=== PATIENT | male | born 1935 | race Caucasian/White ===

== ENCOUNTER 2017-07-20 22:13 | Inpatient (IN) | payer MEDICARE, MEDICAID ==
[2017-07-20 22:55] LABS: HEMATOCRIT 38.8 % (39.0-49.0); HEMOGLOBIN 12.6 gm/dL (12.6-17.4); MEAN CELL VOLUME 85.5 fl (80-99); MEAN CORPUSCULAR HEMOGLOBIN 27.7 pg (27.0-31.0); MEAN CORPUSCULAR HGB CONC 32.3 pg (28.0-36.0); MEAN PLATELET VOLUME 6.6 fl; NEUTROPHILE ABSOLUTE 1.3 Th/cmm (1.8-8.0); PLATELET COUNT 197 Th/cmm (150-400); RED BLOOD COUNT 4.54 Mil/cmm (3.80-5.80); RED CELL DISTRIBUTION WIDTH 13.7 % (11.5-20.0); WHITE BLOOD COUNT 5.6 Th/cmm (4.8-10.8)
[2017-07-20 23:13] LABS: INR 0.93 (0.5-1.4); PROTHROMBIN TIME (TEST) 9.7 SECONDS (9.5-11.5)
[2017-07-20 23:19] LABS: ALB/GLOB RATIO 1.1 (1.0-1.8); ALKALINE PHOSPHATASE 90 U/L (34-104); ANION GAP 7.1 (7.0-16.0); BILIRUBIN,TOTAL 0.4 mg/dL (0.3-1.0); BUN - UREA NITROGEN 26 mg/dL (7-25); BUN/CREATININE RATIO 28.9; CALCIUM SERUM 9.8 mg/dL (8.6-10.3); CARBON DIOXIDE 30.8 mEq/L (21.0-31.0); CHLORIDE 102 mEq/L (98-107); CREATININE - SERUM 0.9 mg/dL (0.7-1.3); GLUCOSE 100 mg/dL (70-105); POTASSIUM SERUM 3.9 mEq/L (3.5-5.1); SGOT 21 U/L (13-39); SGPT/ALT 15 U/L (7-52); SODIUM SERUM 136 mEq/L (136-145)
--- NOTE | 2017-07-21 | ED Physician Chart ---
Chief Complaint/HPI - Patient Information Date Seen:: 07/20/17 Time Seen:: 22:20 Chief Complaint:: WEAKNESS History of Present Illness:: THIS IS AN 81 YO BIB HIS DAUGHTER FROM HOME WITH FOUR DAYS OF INCREASE WEAKNESS AND DECREASE FEEDING. HE HAS HAD SEVERAL STROKES IN THE PAST AND HAS A HISTORY OF A RENAL STENT PLACEMENT OF THE RIGHT SIDE. HE DENIES CHEST PAIN AND ABDOMINAL PAIN. Allergies:: Allergies Allergy/AdvReac Type Severity Reaction Status Date / Time No Known Allergies Allergy Verified 07/20/17 22:23 Vitals:: Vital Signs - 8 hr 07/20/17 22:19 Temp 97.9 F HR 54 RR 18 BP 120/66 O2 Sat % 100 Historian:: Patient, Family Member Review:: Nurse's Note Reviewed Review of Systems - Review of Systems General/Constitutional: No fever, No chills, Weight loss, Weakness, No diaphoresis, No edema, No loss of appetite Skin: No skin lesions, No rash, No bruising Head: No headache, No light-headedness Eyes: No loss of vision, No pain, No diplopia ENT: No earache, No nasal drainage, No sore throat, No tinnitus Neck: No neck pain, No swelling, No thyromegaly, No stiffness, No mass noted Cardio Vascular: No chest pain, No palpitations, No PND, No orthopnea, No edema Pulmonary: No SOB, No cough, No sputum, No wheezing GI: No nausea, No vomiting, No diarrhea, No pain, No melena, No hematochezia, No constipation, No hematemesis G/U: No dysuria, No frequency, No hematuria Musculoskeletal: No bone or joint pain, No back pain, No muscle pain Endocrine: No polyuria, No polydipsia Psychiatric: No prior psych history, No depression, No anxiety, No suicidal ideation Hematopoietic: No bruising, No lymphadenopathy Allergic/Immuno: No urticaria, No angioedema Neurological: No syncope, No focal symptoms, Weakness, No paresthesia, No headache, No seizure, No dizziness, No confusion, No vertigo Past Medical History - Past Medical History Obtainable: Yes Past Medical History: HTN, CVA/TIA, Dyslipidemia Family History: None Social History: Non Smoker, No Alcohol, No Drug Use, Other (FAMILY) Surgical History: other (RENAL STENT PLACED) Psychiatricy History: None Medication: Reviewed Family Medical History - Family Member Mother History Unknown: Yes Physical Exam - Physical Examination General/Constitutional: Awake, Well-developed, well-nourished, Alert, No distress, GCS 15, Non-toxic appearing, Ambulatory Head: Atraumatic Eyes: Lids, conjuctiva normal, PERRL, EOMI Skin: Nl inspection, No rash, No skin lesions, No ecchymosis, Well hydrated, No lymphadenopathy ENMT: External ears, nose nl, Nasal exam nl, Lips, teeth, gums nl Neck: Nontender, Full ROM w/o pain, No JVD, No nuchal rigidity, No bruit, No mass, No stridor Respiratory: Nl effort/Exclusion, Clear to Auscultation, No Wheeze/Rhonchi/Rales Cardio Vascular: No murmur, gallop, rubs Other Cardio Vascular comments:: THE PATIENT IS BRADYCARDIC WITH A RATE OF 47 TO 54 GI: No tenderness/rebounding/guarding, No organomegaly, No hernia, Normal BS's, Nondistended, No mass/bruits, No McBurney tenderness : No CVA tenderness Extremities: No tenderness or effusion, Full ROM, normal strength in all extremities, No edema, Normal digits & nails Neuro/Psych: Alert/oriented, DTR's symmetric, Normal sensory exam, Normal motor strength, Judgement/insight normal, Mood normal, Normal gait, No focal deficits Misc: normal gait, Normal back, No paraspinal tenderness Labs/Radiology/EKG Results - Lab Results Results: Laboratory Tests 07/20/17 07/20/17 07/20/17 22:50 22:50 22:50 WBC 5.6 RBC 4.54 Hgb 12.6 Hct 38.8 L MCV 85.5 MCH 27.7 MCHC Differential 32.3 RDW 13.7 Plt Count 197 MPV 6.6 PT 9.7 INR 0.93 PTT (Actin FS) 23.9 L Sodium 136 Potassium 3.9 Chloride 102 Carbon Dioxide 30.8 Anion Gap 7.1 BUN 26 H Creatinine 0.9 Est GFR ( Amer) TNP Est GFR (Non-Af Amer) TNP BUN/Creatinine Ratio 28.9 Glucose 100 Calcium 9.8 Total Bilirubin 0.4 AST 21 ALT 15 Alkaline Phosphatase 90 Troponin I Total Protein 7.4 Albumin 3.8 L Globulin 3.6 Albumin/Globulin Ratio 1.1 07/20/17 22:50 WBC RBC Hgb Hct MCV MCH MCHC Differential RDW Plt Count MPV PT INR PTT (Actin FS) Sodium Potassium Chloride Carbon Dioxide Anion Gap BUN Creatinine Est GFR ( Amer) Est GFR (Non-Af Amer) BUN/Creatinine Ratio Glucose Calcium Total Bilirubin AST ALT Alkaline Phosphatase Troponin I 0.11 H* Total Protein Albumin Globulin Albumin/Globulin Ratio - Radiology Results Results: CHEST X-RAY = NAD - EKG Interpretations EKG Time:: 23:43 Rate & Rhythm: RATE=47, SINUS BRADYCARDIA Mobile: LEFT Assessment - Assessment General Assessment: SYMPTOMATIC BRADYCARDIA ELEVATED TROPONIN STATUS POST CVA ED Septic Shock - . Is Septic Shock (SBP<90, OR Lactate>4 mmol\L) present?: No - <6hrs of presentation: Vital Signs: Vital Signs - 8 hr 07/20/17 22:19 Temp 97.9 F HR 54 RR 18 BP 120/66 O2 Sat % 100 Reassessment (Disposition) - Reassessment Reassessment Condition:: Unchanged - Diagnosis Diagnosis:: SYMPTOMATIC BRADYCARDIA ELEVATED TROPONIN STATUS POST CVA - Patient Disposition Discharge/Transfer:: Acute Care w/in this hosp Admitting Medical Physician:: Marcelo Aguilar Condition at Disposition:: Unchanged ED Discharge Plan - Patient Disposition Admit/Discharge/Transfer: Acute Care w/in this hosp Condition at Disposition: Unchanged
[2017-07-21] MEDS ORDERED: Sodium Chloride 0.9% 1,000 ML IV ONE (00:03)
[2017-07-21 01:34] LABS: CHOLESTEROL 137 mg/dL (<200); TRIGLYCERIDES 147 mg/dL (<150)
[2017-07-21 05:39] VITALS: BP 160/74
--- NOTE | 2017-07-21 08:44 | Diagnostic Imaging Report ---
CHEST X-RAY: AP view INDICATION: Fever COMPARISON: None FINDINGS: There is no focal consolidation or pleural effusions The heart is normal in size. Degenerative changes of the spine are noted. Gas-filled loops of bowel are seen. Additional tubing material possibly stent is seen along the right upper abdomen. 4 mm chronic density possible bone island is seen within the right proximal humerus. IMPRESSION: No focal consolidation identified. Tubing material possibly biliary stent of the right upper quadrant. Please correlate with clinical history.
[2017-07-21] MEDS ORDERED: Pneumococcal Vaccine 0.5 mL Vial IM ONE (09:00)
[2017-07-21] MEDS: Aspirin 81mg Chewable Tab PO SCH (09:30)
[2017-07-21] MEDS: Atorvastatin Calcium 10 MG TAB PO SCH (09:31)
[2017-07-21] MEDS ORDERED: VTE Chemical Prophylaxis Screen/Admission MC PRN (11:45)
--- NOTE | 2017-07-21 17:57 | History & Physical ---
ADMIT DATE: 07/21/2017 CHIEF COMPLAINT: Generalized weakness and recurrent fall. HISTORY OF PRESENT ILLNESS: This is an 81-year-old male with prior history of CVA, hypertension, hyperlipidemia who lives at home with family, was brought into the Emergency Room for evaluation of the recurrent fall and weakness associated with decreased appetite. The patient was evaluated in the Emergency Room, noticed elevated troponin and bradycardia, so the patient was admitted for further treatments. The patient is [place] speaking. Denies any chest pain, shortness of breath, dizziness, palpitations, any nausea, vomiting, headache. No trouble vision or trouble speech, any fevers or chills. PAST MEDICAL HISTORY: Hypertension, hyperlipidemia, old CVA. PAST SURGICAL HISTORY: None reported. SOCIAL HISTORY: Lives at home. No prior history of alcohol, tobacco or street drug use. CURRENT MEDICATIONS: The patient is currently on aspirin, atorvastatin, Proscar, Lopid, and Zestril. REVIEW OF SYSTEMS: As per HPI. A 12-point system reviewed, appeared negative. PHYSICAL EXAMINATION: VITAL SIGNS: Temperature 97.7, pulse 74, respiration 18, blood pressure . GENERAL APPEARANCE: The patient does not seem to be in acute distress, lying comfortably. HEENT: Unremarkable. HEART: S1, S2 normal. LUNGS: Clear to auscultation. ABDOMEN: Soft. Nontender, no guarding. NEUROLOGIC: Alert, awake, follows commands. Moves all extremities. No focal deficits. EXTREMITIES: No edema noted. No calf tenderness. AVAILABLE LABORATORY DATA: WBC 5.6, hemoglobin 12.6, hematocrit 38.8, platelet count is 197, BUN 26, creatinine 0.9, . Chest x-ray, no acute cardiopulmonary disease noted. ASSESSMENT: 1. Generalized weakness. 2. Elevated troponin, rule out acute coronary syndrome. 3. Symptomatic bradycardia. 4. Hypertension. 5. Hyperlipidemia. 6. BPH. 7. Prior history of CVA. 8. Recurrent fall. PLAN: The patient admitted on tele unit. Serial troponins were obtained. Cardiology was consulted, echocardiogram ordered. The patient will continue aspirin, statin, and lisinopril. Monitor heart rate and rhythm. Follow up on the cardiology recommendations. PT and OT will be given. The patient's condition and progress discussed with nursing staff. JOB# [id number]
[2017-07-22] MEDS: Aspirin 81mg Chewable Tab PO SCH (09:05)
[2017-07-22] MEDS: Atorvastatin Calcium 10 MG TAB PO SCH (09:41)
--- NOTE | 2017-07-22 15:08 | Cardiology ---
07/21/[address] Marcelo Aguilar. M-MODE ECHOCARDIOGRAM: Mitral valve, anterior leaflet of mitral valve shows normal excursion, EF velocity. Posterior leaflet of the mitral valve shows normal excursion. Left ventricular posterior wall shows increased thickness, normal excursion. Interventricular septum shows increased thickness, normal excursion, hypertrophy of the left ventricle, ejection fraction 50%. Left atrium normal. Aortic root shows normal dimension, normal excursion of aortic leaflets. CONCLUSION: Hypertrophy of the left ventricle, ejection fraction 50%. 2D ECHO: Long axis view showed normal sized left ventricle with hypertrophy of the left ventricle. Left atrium normal. Aortic root shows normal dimension, normal excursion of aortic leaflets. Short axis view of mitral valve normal. Short axis view of aortic valve normal. Apical four chamber view showed normal sized left ventricle with hypertrophy of the left ventricle. Left atrium normal. Right ventricular cavity, right atrium normal, no pericardial effusion. CONCLUSION: Hypertrophy of the left ventricle, ejection fraction 50%. Doppler study shows prominent A wave consistent with poor compliance of left ventricle. Mild mitral regurgitation, tricuspid regurgitation, aortic regurgitation. JOB# [id number]
--- NOTE | 2017-07-22 18:05 | General Progress Note ---
Subjective - Review of Systems Service Date: 07/22/17 Subjective: Patient seen and examined doing better denied chest pain or sob or any other complaints Objective - Results Result Diagrams: 07/20/17 22:50 07/20/17 22:50 Recent Labs: Laboratory Last Values WBC 5.6 Th/cmm (4.8-10.8) 07/20/17 22:50 RBC 4.54 Mil/cmm (3.80-5.80) 07/20/17 22:50 Hgb 12.6 gm/dL (12.6-17.4) 07/20/17 22:50 Hct 38.8 % (39.0-49.0) L 07/20/17 22:50 MCV 85.5 fl (80-99) 07/20/17 22:50 MCH 27.7 pg (27.0-31.0) 07/20/17 22:50 MCHC Differential 32.3 pg (28.0-36.0) 07/20/17 22:50 RDW 13.7 % (11.5-20.0) 07/20/17 22:50 Plt Count 197 Th/cmm (150-400) 07/20/17 22:50 MPV 6.6 fl 07/20/17 22:50 PT 9.7 SECONDS (9.5-11.5) 07/20/17 22:50 INR 0.93 (0.5-1.4) 07/20/17 22:50 PTT (Actin FS) 23.9 SECONDS (26.0-38.0) L 07/20/17 22:50 Sodium 136 mEq/L (136-145) 07/20/17 22:50 Potassium 3.9 mEq/L (3.5-5.1) 07/20/17 22:50 Chloride 102 mEq/L (98-107) 07/20/17 22:50 Carbon Dioxide 30.8 mEq/L (21.0-31.0) 07/20/17 22:50 Anion Gap 7.1 (7.0-16.0) 07/20/17 22:50 BUN 26 mg/dL (7-25) H 07/20/17 22:50 Creatinine 0.9 mg/dL (0.7-1.3) 07/20/17 22:50 Est GFR ( Amer) TNP 07/20/17 22:50 Est GFR (Non-Af Amer) TNP 07/20/17 22:50 BUN/Creatinine Ratio 28.9 07/20/17 22:50 Glucose 100 mg/dL (70-105) 07/20/17 22:50 POC Glucose 84 MG/DL (70 - 105) 07/21/17 12:31 Calcium 9.8 mg/dL (8.6-10.3) 07/20/17 22:50 Total Bilirubin 0.4 mg/dL (0.3-1.0) 07/20/17 22:50 AST 21 U/L (13-39) 07/20/17 22:50 ALT 15 U/L (7-52) 07/20/17 22:50 Alkaline Phosphatase 90 U/L (34-104) 07/20/17 22:50 Troponin I 0.10 ng/mL (0.01-0.05) H* 07/21/17 12:44 Total Protein 7.4 gm/dL (6.0-8.3) 07/20/17 22:50 Albumin 3.8 gm/dL (4.2-5.5) L 07/20/17 22:50 Globulin 3.6 gm/dL 07/20/17 22:50 Albumin/Globulin Ratio 1.1 (1.0-1.8) 07/20/17 22:50 Triglycerides 147 mg/dL (<150) 07/20/17 22:50 Cholesterol 137 mg/dL (<200) 07/20/17 22:50 LDL Cholesterol Direct 70 mg/dL (75-193) L 07/20/17 22:50 HDL Cholesterol 39 mg/dL (23-92) 07/20/17 22:50 TSH 1.44 uIU/ml (0.34-5.60) 07/20/17 22:50 RPR NONREACTIVE (NONREACTIVE) 07/20/17 22:50 - Physical Exam Vitals and I&O: Vital Signs Temp 97.0 F 07/22/17 16:00 Pulse 59 07/22/17 16:00 Resp 19 07/22/17 16:00 BP 149/70 07/22/17 16:00 Pulse Ox 100 07/22/17 16:00 Intake & Output 07/21/17 07/22/17 07/22/17 18:59 06:59 18:59 Intake Total 300 100 Balance 300 100 Weight (lbs) 75.75 kg 75.75 kg Intake: Oral 300 100 Other: # Voids 1 2 # Bowel Movements 1 1 Stool Characteristics Soft Formed Active Medications: Current Medications Aspirin (Aspirin Chewable) 81 mg PO DAILY [facility] Stop: 09/19/17 08:59 Last Admin: 07/22/17 09:05 Dose: 81 mg Atorvastatin Calcium (Lipitor) 20 mg PO DAILY [facility] PRN Reason: Protocol Stop: 09/19/17 08:59 Last Admin: 07/22/17 09:41 Dose: 20 mg Finasteride (Proscar) 5 mg PO DAILY [facility] PRN Reason: Protocol Stop: 09/19/17 08:59 Last Admin: 07/22/17 09:06 Dose: 5 mg Gemfibrozil (Lopid) 600 mg PO DAILY [facility] Stop: 09/19/17 08:59 Last Admin: 07/22/17 09:05 Dose: 600 mg Heparin Sodium (Porcine) (Heparin) 5,000 units SUBQ Q12HR [facility] Stop: 09/19/17 20:59 Last Admin: 07/22/17 09:41 Dose: 5,000 units Lisinopril (Zestril) 5 mg PO BID [facility] Stop: 09/19/17 08:59 Last Admin: 07/21/17 09:32 Dose: Not Given Miscellaneous (Vte Chemical Prophylaxis Screen/ Admission) 1 ea [facility] PRN PRN PRN Reason: PROTOCOL Stop: 09/19/17 11:44 General: No acute distress Cardiovascular: Regular rate Lungs: Clear to auscultation Assessment/Plan - Assessment Assessment: Elevated troponin Weakness Recurrent fall HTN Hyperlipidemia - Plan Plan: Cardiac w/u Cardiology on board Monitor cardiac status PT/OT Monitor vitals
[2017-07-23 04:36] LABS: URINE BILIRUBIN NEGATIVE (NEGATIVE); URINE BLOOD NEGATIVE (NEGATIVE); URINE GLUCOSE (UA) NEGATIVE (NEGATIVE); URINE KETONE NEGATIVE (NEGATIVE); URINE PH 6.5 (4.6 - 8.0); URINE PROTEIN TRACE mg/dL (NEGATIVE)
[2017-07-23 04:43] LABS: URINE COLOR YELLOW
[2017-07-23 04:44] LABS: URINE BACTERIA OCCASIONAL /hpf (NONE SEEN); URINE EPITHELIAL CELLS OCCASIONAL /lpf (FEW); URINE RBC 0-2 /hpf (0-5); URINE WBC 0-2 /hpf (0-5)
[2017-07-23] MEDS: Aspirin 81mg Chewable Tab PO SCH (09:25)
[2017-07-23] MEDS: Atorvastatin Calcium 10 MG TAB PO SCH (09:25)
[2017-07-23 14:00] LABS: HEMATOCRIT 37.5 % (39.0-49.0); HEMOGLOBIN 12.2 gm/dL (12.6-17.4); MEAN CORPUSCULAR HEMOGLOBIN 28.2 pg (27.0-31.0); MEAN CORPUSCULAR HGB CONC 32.4 pg (28.0-36.0); PLATELET COUNT 176 Th/cmm (150-400); RED BLOOD COUNT 4.32 Mil/cmm (3.80-5.80); RED CELL DISTRIBUTION WIDTH 13.8 % (11.5-20.0); WHITE BLOOD COUNT 6.1 Th/cmm (4.8-10.8)
[2017-07-23 14:25] LABS: ANION GAP 7.2 (7.0-16.0); BUN - UREA NITROGEN 21 mg/dL (7-25); BUN/CREATININE RATIO 23.3; CALCIUM SERUM 9.2 mg/dL (8.6-10.3); CARBON DIOXIDE 27.8 mEq/L (21.0-31.0); CHLORIDE 105 mEq/L (98-107); CREATININE - SERUM 0.9 mg/dL (0.7-1.3); GLUCOSE 108 mg/dL (70-105); SODIUM SERUM 136 mEq/L (136-145)
[2017-07-23 14:29] LABS: EOSINOPHIL 3 % (0-5); NEUTROPHILS 24 % (40-80); PLATELET ESTIMATE ADEQUATE (NORMAL); PLATELET MORPHOLOGY NORMAL (NORMAL); TOTAL CELLS COUNTED 100
--- NOTE | 2017-07-23 14:50 | General Progress Note ---
Subjective - Review of Systems Service Date: 07/23/17 Subjective: Patient seen and examined doing better denied chest pain or sob or any other complaints pt's nurse was at the bedside Objective - Results Result Diagrams: 07/23/17 13:54 07/23/17 13:54 Recent Labs: Laboratory Last Values WBC 6.1 Th/cmm (4.8-10.8) 07/23/17 13:54 RBC 4.32 Mil/cmm (3.80-5.80) 07/23/17 13:54 Hgb 12.2 gm/dL (12.6-17.4) L 07/23/17 13:54 Hct 37.5 % (39.0-49.0) L 07/23/17 13:54 MCV 87.0 fl (80-99) 07/23/17 13:54 MCH 28.2 pg (27.0-31.0) 07/23/17 13:54 MCHC Differential 32.4 pg (28.0-36.0) 07/23/17 13:54 RDW 13.8 % (11.5-20.0) 07/23/17 13:54 Plt Count 176 Th/cmm (150-400) 07/23/17 13:54 MPV 7.0 fl 07/23/17 13:54 Neutrophils (Manual) 24 % (40-80) L 07/23/17 13:54 Lymphocytes 63 % (20-50) H 07/23/17 13:54 Monocytes 8 % (2-10) 07/23/17 13:54 Eosinophils 3 % (0-5) 07/23/17 13:54 Nucleated RBCs 1.0 % (0-0) H 07/23/17 13:54 Atypical Lymphocytes 2 % 07/23/17 13:54 Platelet Estimate ADEQUATE (NORMAL) 07/23/17 13:54 Platelet Morphology NORMAL (NORMAL) 07/23/17 13:54 RBC Morph Micro Appear NORMAL (NORMAL) 07/23/17 13:54 PT 9.7 SECONDS (9.5-11.5) 07/20/17 22:50 INR 0.93 (0.5-1.4) 07/20/17 22:50 PTT (Actin FS) 23.9 SECONDS (26.0-38.0) L 07/20/17 22:50 Sodium 136 mEq/L (136-145) 07/23/17 13:54 Potassium 4.0 mEq/L (3.5-5.1) 07/23/17 13:54 Chloride 105 mEq/L (98-107) 07/23/17 13:54 Carbon Dioxide 27.8 mEq/L (21.0-31.0) 07/23/17 13:54 Anion Gap 7.2 (7.0-16.0) 07/23/17 13:54 BUN 21 mg/dL (7-25) 07/23/17 13:54 Creatinine 0.9 mg/dL (0.7-1.3) 07/23/17 13:54 Est GFR ( Amer) TNP 07/23/17 13:54 Est GFR (Non-Af Amer) TNP 07/23/17 13:54 BUN/Creatinine Ratio 23.3 07/23/17 13:54 Glucose 108 mg/dL (70-105) H 07/23/17 13:54 POC Glucose 84 MG/DL (70 - 105) 07/21/17 12:31 Calcium 9.2 mg/dL (8.6-10.3) 07/23/17 13:54 Total Bilirubin 0.4 mg/dL (0.3-1.0) 07/20/17 22:50 AST 21 U/L (13-39) 07/20/17 22:50 ALT 15 U/L (7-52) 07/20/17 22:50 Alkaline Phosphatase 90 U/L (34-104) 07/20/17 22:50 Troponin I 0.10 ng/mL (0.01-0.05) H* 07/21/17 12:44 Total Protein 7.4 gm/dL (6.0-8.3) 07/20/17 22:50 Albumin 3.8 gm/dL (4.2-5.5) L 07/20/17 22:50 Globulin 3.6 gm/dL 07/20/17 22:50 Albumin/Globulin Ratio 1.1 (1.0-1.8) 07/20/17 22:50 Triglycerides 147 mg/dL (<150) 07/20/17 22:50 Cholesterol 137 mg/dL (<200) 07/20/17 22:50 LDL Cholesterol Direct 70 mg/dL (75-193) L 07/20/17 22:50 HDL Cholesterol 39 mg/dL (23-92) 07/20/17 22:50 TSH 1.44 uIU/ml (0.34-5.60) 07/20/17 22:50 Urine Source CLEAN C 07/23/17 02:00 Urine Color YELLOW 07/23/17 02:00 Urine Clarity CLEAR (CLEAR) 07/23/17 02:00 Urine pH 6.5 (4.6 - 8.0) 07/23/17 02:00 Ur Specific [place] 1.020 (1.005-1.030) 07/23/17 02:00 Urine Protein TRACE mg/dL (NEGATIVE) 07/23/17 02:00 Urine Glucose (UA) NEGATIVE mg/dL (NEGATIVE) 07/23/17 02:00 Urine Ketones NEGATIVE mg/dL (NEGATIVE) 07/23/17 02:00 Urine Blood NEGATIVE (NEGATIVE) 07/23/17 02:00 Urine Nitrate NEGATIVE (NEGATIVE) 07/23/17 02:00 Urine Bilirubin NEGATIVE (NEGATIVE) 07/23/17 02:00 Urine Urobilinogen 1.0 E.U./dL (0.2 - 1.0) 07/23/17 02:00 Ur Leukocyte Esterase NEGATIVE (NEGATIVE) 07/23/17 02:00 Urine RBC 0-2 /hpf (0-5) H 07/23/17 02:00 Urine WBC 0-2 /hpf (0-5) 07/23/17 02:00 Ur Epithelial Cells OCCASIONAL /lpf (FEW) 07/23/17 02:00 Urine Bacteria OCCASIONAL /hpf (NONE SEEN) 07/23/17 02:00 RPR NONREACTIVE (NONREACTIVE) 07/20/17 22:50 - Physical Exam Vitals and I&O: Vital Signs Temp 97.8 F 07/23/17 12:00 Pulse 58 07/23/17 12:00 Resp 17 07/23/17 12:00 BP 150/76 07/23/17 12:00 Pulse Ox 99 07/23/17 12:00 Intake & Output 07/22/17 07/23/17 07/23/17 18:59 06:59 18:59 Intake Total 280 150 Output Total 1 Balance 279 150 Weight (lbs) 75.296 kg 75.296 kg Intake: Oral 280 150 Output: Stool 1 Other: # Voids 3 # Bowel Movements 1 Active Medications: Current Medications Aspirin (Aspirin Chewable) 81 mg PO DAILY [facility] Stop: 09/19/17 08:59 Last Admin: 07/23/17 09:25 Dose: 81 mg Atorvastatin Calcium (Lipitor) 20 mg PO DAILY [facility] PRN Reason: Protocol Stop: 09/19/17 08:59 Last Admin: 07/23/17 09:25 Dose: 20 mg Finasteride (Proscar) 5 mg PO DAILY [facility] PRN Reason: Protocol Stop: 09/19/17 08:59 Last Admin: 07/23/17 09:25 Dose: 5 mg Gemfibrozil (Lopid) 600 mg PO DAILY [facility] Stop: 09/19/17 08:59 Last Admin: 07/23/17 09:25 Dose: 600 mg Heparin Sodium (Porcine) (Heparin) 5,000 units SUBQ Q12HR [facility] Stop: 09/19/17 20:59 Last Admin: 07/23/17 09:25 Dose: 5,000 units Lisinopril (Zestril) 5 mg PO BID [facility] Stop: 09/19/17 08:59 Last Admin: 07/23/17 09:36 Dose: Not Given Miscellaneous (Vte Chemical Prophylaxis Screen/ Admission) 1 ea [facility] PRN PRN PRN Reason: PROTOCOL Stop: 09/19/17 11:44 General: No acute distress Cardiovascular: Regular rate Lungs: Clear to auscultation Assessment/Plan - Assessment Assessment: Elevated troponin ACS ruled out Weakness Recurrent fall HTN Hyperlipidemia - Plan Plan: DC plan for SNIF Cardiac w/u negative Cardiology on board Monitor cardiac status PT/OT Monitor vitals Plan of care discussed with nursing staff
[2017-07-24] MEDS: Atorvastatin Calcium 10 MG TAB PO SCH (08:18)
[2017-07-24] MEDS: Aspirin 81mg Chewable Tab PO SCH (08:19)
--- NOTE | 2017-07-24 12:27 | General Progress Note ---
Subjective - Review of Systems Service Date: 07/24/17 Subjective: Patient doing fine denied any complaints Objective - Results Result Diagrams: 07/23/17 13:54 07/23/17 13:54 Recent Labs: Laboratory Last Values WBC 6.1 Th/cmm (4.8-10.8) 07/23/17 13:54 RBC 4.32 Mil/cmm (3.80-5.80) 07/23/17 13:54 Hgb 12.2 gm/dL (12.6-17.4) L 07/23/17 13:54 Hct 37.5 % (39.0-49.0) L 07/23/17 13:54 MCV 87.0 fl (80-99) 07/23/17 13:54 MCH 28.2 pg (27.0-31.0) 07/23/17 13:54 MCHC Differential 32.4 pg (28.0-36.0) 07/23/17 13:54 RDW 13.8 % (11.5-20.0) 07/23/17 13:54 Plt Count 176 Th/cmm (150-400) 07/23/17 13:54 MPV 7.0 fl 07/23/17 13:54 Neutrophils (Manual) 24 % (40-80) L 07/23/17 13:54 Lymphocytes 63 % (20-50) H 07/23/17 13:54 Monocytes 8 % (2-10) 07/23/17 13:54 Eosinophils 3 % (0-5) 07/23/17 13:54 Nucleated RBCs 1.0 % (0-0) H 07/23/17 13:54 Atypical Lymphocytes 2 % 07/23/17 13:54 Platelet Estimate ADEQUATE (NORMAL) 07/23/17 13:54 Platelet Morphology NORMAL (NORMAL) 07/23/17 13:54 RBC Morph Micro Appear NORMAL (NORMAL) 07/23/17 13:54 PT 9.7 SECONDS (9.5-11.5) 07/20/17 22:50 INR 0.93 (0.5-1.4) 07/20/17 22:50 PTT (Actin FS) 23.9 SECONDS (26.0-38.0) L 07/20/17 22:50 Sodium 136 mEq/L (136-145) 07/23/17 13:54 Potassium 4.0 mEq/L (3.5-5.1) 07/23/17 13:54 Chloride 105 mEq/L (98-107) 07/23/17 13:54 Carbon Dioxide 27.8 mEq/L (21.0-31.0) 07/23/17 13:54 Anion Gap 7.2 (7.0-16.0) 07/23/17 13:54 BUN 21 mg/dL (7-25) 07/23/17 13:54 Creatinine 0.9 mg/dL (0.7-1.3) 07/23/17 13:54 Est GFR ( Amer) TNP 07/23/17 13:54 Est GFR (Non-Af Amer) TNP 07/23/17 13:54 BUN/Creatinine Ratio 23.3 07/23/17 13:54 Glucose 108 mg/dL (70-105) H 07/23/17 13:54 POC Glucose 84 MG/DL (70 - 105) 07/21/17 12:31 Calcium 9.2 mg/dL (8.6-10.3) 07/23/17 13:54 Total Bilirubin 0.4 mg/dL (0.3-1.0) 07/20/17 22:50 AST 21 U/L (13-39) 07/20/17 22:50 ALT 15 U/L (7-52) 07/20/17 22:50 Alkaline Phosphatase 90 U/L (34-104) 07/20/17 22:50 Troponin I 0.11 ng/mL (0.01-0.05) H* 07/24/17 06:50 Total Protein 7.4 gm/dL (6.0-8.3) 07/20/17 22:50 Albumin 3.8 gm/dL (4.2-5.5) L 07/20/17 22:50 Globulin 3.6 gm/dL 07/20/17 22:50 Albumin/Globulin Ratio 1.1 (1.0-1.8) 07/20/17 22:50 Triglycerides 147 mg/dL (<150) 07/20/17 22:50 Cholesterol 137 mg/dL (<200) 07/20/17 22:50 LDL Cholesterol Direct 70 mg/dL (75-193) L 07/20/17 22:50 HDL Cholesterol 39 mg/dL (23-92) 07/20/17 22:50 TSH 1.44 uIU/ml (0.34-5.60) 07/20/17 22:50 Urine Source CLEAN C 07/23/17 02:00 Urine Color YELLOW 07/23/17 02:00 Urine Clarity CLEAR (CLEAR) 07/23/17 02:00 Urine pH 6.5 (4.6 - 8.0) 07/23/17 02:00 Ur Specific [place] 1.020 (1.005-1.030) 07/23/17 02:00 Urine Protein TRACE mg/dL (NEGATIVE) 07/23/17 02:00 Urine Glucose (UA) NEGATIVE mg/dL (NEGATIVE) 07/23/17 02:00 Urine Ketones NEGATIVE mg/dL (NEGATIVE) 07/23/17 02:00 Urine Blood NEGATIVE (NEGATIVE) 07/23/17 02:00 Urine Nitrate NEGATIVE (NEGATIVE) 07/23/17 02:00 Urine Bilirubin NEGATIVE (NEGATIVE) 07/23/17 02:00 Urine Urobilinogen 1.0 E.U./dL (0.2 - 1.0) 07/23/17 02:00 Ur Leukocyte Esterase NEGATIVE (NEGATIVE) 07/23/17 02:00 Urine RBC 0-2 /hpf (0-5) H 07/23/17 02:00 Urine WBC 0-2 /hpf (0-5) 07/23/17 02:00 Ur Epithelial Cells OCCASIONAL /lpf (FEW) 07/23/17 02:00 Urine Bacteria OCCASIONAL /hpf (NONE SEEN) 07/23/17 02:00 RPR NONREACTIVE (NONREACTIVE) 07/20/17 22:50 - Physical Exam Vitals and I&O: Vital Signs Temp 97.1 F 07/24/17 08:00 Pulse 55 07/24/17 08:19 Resp 17 07/24/17 10:00 BP 129/69 07/24/17 08:19 Pulse Ox 99 07/24/17 08:00 Intake & Output 07/23/17 07/24/17 07/24/17 18:59 06:59 18:59 Intake Total 500 100 Output Total 0 Balance 500 100 Weight (lbs) 75.296 kg 75.296 kg Intake: Oral 500 100 Output: Stool 0 Other: # Voids 2 3 # Bowel Movements 0 1 Active Medications: Current Medications Aspirin (Aspirin Chewable) 81 mg PO DAILY [facility] Stop: 09/19/17 08:59 Last Admin: 07/24/17 08:19 Dose: 81 mg Atorvastatin Calcium (Lipitor) 20 mg PO DAILY [facility] PRN Reason: Protocol Stop: 09/19/17 08:59 Last Admin: 07/24/17 08:18 Dose: 20 mg Finasteride (Proscar) 5 mg PO DAILY [facility] PRN Reason: Protocol Stop: 09/19/17 08:59 Last Admin: 07/24/17 08:18 Dose: 5 mg Gemfibrozil (Lopid) 600 mg PO DAILY [facility] Stop: 09/19/17 08:59 Last Admin: 07/24/17 08:19 Dose: 600 mg Heparin Sodium (Porcine) (Heparin) 5,000 units SUBQ Q12HR [facility] Stop: 09/19/17 20:59 Last Admin: 07/24/17 08:20 Dose: 5,000 units Lisinopril (Zestril) 5 mg PO BID [facility] Stop: 09/19/17 08:59 Last Admin: 07/24/17 08:19 Dose: 5 mg Miscellaneous (Vte Chemical Prophylaxis Screen/ Admission) 1 ea [facility] PRN PRN PRN Reason: PROTOCOL Stop: 09/19/17 11:44 General: No acute distress Cardiovascular: Regular rate Lungs: Clear to auscultation Abdomen: Soft Assessment/Plan - Assessment Assessment: Elevated troponin ACS ruled out Weakness Recurrent fall HTN Hyperlipidemia - Plan Plan: DC plan for SNIF in progress Cardiac w/u negative Cardiology on board Monitor cardiac status PT/OT Monitor vitals Plan of care discussed with nursing staff
--- NOTE | 2017-07-26 02:51 | Admit Criteria Form ---
Admit Criteria Forms - Admit Criteria Diagnosis: TELEMETRY CARE Telemetry Admission Guidelines (Place 'X' for any and all applicable criteria): Admission to telemetry [A] may be indicated for ANY ONE of the following(1)(2)(3 )(4)(5): [ X]I. Cardiac disease, including ANY ONE of the following (9)(10)(11)(12)( 13): [ ]a) Postacute RI [ ]b) Low-risk patients with ST-segment elevation RI who have undergone successful percutaneous coronary intervention [ ]c) Unstable angina [ ]d) Suspected RI (until it is ruled out) [ ]e) Post cardiac surgery (first 48 to 72 hours unless complications occur) [X ]f) Acute arrhythmias (including significant tachycardia or bradycardia) [B] [ ]g) Firing of an implantable cardioverter defibrillator [C] [ ]h) Suspected pacemaker or implantable cardioverter defibrillator malfunction (10) [ ]i) New administration or adjustment of an antiarrhythmic drug [D ] [ ]j) Child admitted for acute congestive heart failure [ ]j) Long QT syndrome [ ]k) Advanced heart block (eg, second-degree Mobitz type II, third- degree heart block) [ ]l) Acute myocarditis or pericarditis [ ]m) Short-term (ambulatory or inpatient) monitoring after a cardiac procedure as indicated by ANY ONE of the following [E]: [ ]i) Electrophysiologic studies [ ]ii) Percutaneous coronary intervention with stent placement [ ]iii) Pacemaker placement with cardiac conduction defect [ ]iv) Implantable cardiac defibrillator placement [ ]II. Drug overdose or poisoning with substance that causes arrhythmias or QT prolongation (eg, phenothiazines, sympathomimetic agents, cyclic antidepressants, digitalis, antiarrhythmic drugs)(15) [ ]III. Short-term (ambulatory or inpatient) monitoring after therapeutic or diagnostic procedure requiring conscious sedation or anesthesia (eg, endoscopy, elective cardioversion) [ ]IV. Acute cerebrovascular even[F](18) [ ]V. Massive blood transfusion (eg, at least 10 units of packed red blood cells in 24 hours) [ ]. Variceal bleeding after endoscopy, sclerotherapy, or IV vasopressin [ ]VII. Uncorrected electrolyte abnormalities associated with an increased risk of dangerous arrhythmia [G]; examples include [ ]a) Hyperkalemia with attributable ECG changes [ ]b) Potassium greater than 6.5 mmol/L (mEq/L) in a patient without history of chronic renal disease [ ]c) Prolonged QT attributed to hypokalemia, hypomagnesemia, or hypocalcemia [ ]VIII.Unexplained syncope or other neurologic event suspected of being due to arrhythmia due to a finding that increases risk; examples include(19)(20)(21): [ ]a) High-risk ECG findings (eg, bifascicular block, bradycardia, abnormal QT interval, ventricular pre- excitation) [ ]b) History of previous syncope due to arrhythmia [ ]c) Abnormal ventricular function (eg, reduced ejection fraction ) [ ]d) Exertional or supine syncope [ ]e) Concerning syncope characteristics (eg, sudden loss of consciousness without prodrome) [ ]f) Family history of sudden [ ]g) Use of arrhythmogenic medication [ ]h) Suspected cardiac ischemia [ ]i) Known channelopathy (eg, long QT syndrome, Brugada syndrome, or catecholaminergic paroxysmal ventricular tachycardia) [ ]j) Known structural heart disease (eg, hypertrophic cardiomyopathy , severe valvular disease) [ ]k) Palpitations preceding syncope The original [employer] content created by [employer] has been revised. The portions of the content which have been revised are identified through the use of italic text or in bold, and [employer] [email or web address] has neither reviewed nor approved the modified material. All other unmodified content is copyright [employer]. Please see references footnoted in the original [employer] edition 2016 Admit Criteria Met?: Yes
--- NOTE | 2017-08-21 22:11 | Discharge Summary ---
DATE OF DISCHARGE: 07/24/2017 FINAL DIAGNOSES: 1. Generalized weakness. 2. Elevated troponin, acute coronary syndrome ruled out. 3. Recurrent fall. 4. Hypertension. 5. Hyperlipidemia. HOSPITAL COURSE: This is an 82-year-old male who was admitted for evaluation of generalized weakness and recurrent fall. Upon admission, noted to have elevated troponin. Cardiology was consulted. The patient was evaluated by Cardiology. No acute cardiac condition was identified. The patient was initially monitored on front desk monitor. No ____ arrhythmia was noted. The patient's other lab and vitals remained stable. The patient's chest x-ray was negative for any pneumonia or any evidence of any acute pulmonary issues. The patient was started on physical and occupational therapy. Due to underlying weakness, recurrent fall, discussed with the family. The family agreed with [facility] transfer for rehab. paper mill manager was consulted per family and the patient's agreement. The patient was transferred to [facility] facility for further treatment. DISCHARGE CONDITION: Stable. DISCHARGE MEDICATIONS: Please see medication reconciliation. DISCHARGE INSTRUCTIONS: To be followed by primary MD at the [facility] facility. JOB# [id number]
== END 2017-07-24 16:20 | DRG 310 ==
LOC: ER 22:13 → TELE 07-21 00:45
PROVIDERS: ADMIT Family Medicine; ATTEND Family Medicine
DX: R00.1 Bradycardia, unspecified (principal); I10 Essential (primary) hypertension; R53.1 Weakness; R29.6 Repeated falls; E78.5 Hyperlipidemia, unspecified; N40.0 Benign prostatic hyperplasia without lower urinary tract symptoms; Z86.73 Personal history of transient ischemic attack (TIA), and cerebral infarction without residual deficits
CPT/HCPCS: 36415-UA; 71010-TC; 80048-TC; 80053-TC; 80061-TC; 81001-TC; 82948-90; 84443-TC; 84484-TC; 85007-TC; 85027-TC; 85610-TC; 85730-TC; 86592-TC; 93005; 94760; J1644; J7030; Z7610